=== PATIENT | male | born 1995 ===

== ENCOUNTER → 2021-06-01 | Emergency (ER) | payer MEDICAID, OTHER ==
[~2021-06-01] VITALS: Ht 188 cm; Wt 104.3 kg
[~2021-06-01] MED LIST: FAMOTIDINE 20 MG TAB PO ONE; HYDROcodone-ACET 5/325MG TAB PO ONE; IBUPROFEN 600 MG TAB PO ONE
[2021-06-01 17:40] VITALS: BP 114/72
== END | disposition left against medical advice (07) ==
LOC: ER 13:35 → EDSEX 13:35
DX: S62.310A Displaced fracture of base of second metacarpal bone, right hand, initial encounter for closed fracture (principal); F17.210 Nicotine dependence, cigarettes, uncomplicated; W20.8XXA Other cause of strike by thrown, projected or falling object, initial encounter; Y93.89 Activity, other specified; Y92.89 Other specified places as the place of occurrence of the external cause; Y99.8 Other external cause status
CPT/HCPCS: 29125; 73110